=== PATIENT | male | born 1990 ===

== ENCOUNTER 2022-01-30 20:28 | Emergency (ER) | payer SELFPAY ==
[2022-01-30] MEDS ORDERED: SODIUM CHLORIDE 0.9% 1000 ML 1,000 ML IV ONE (23:21)
[2022-01-30] MEDS ORDERED: KETOROLAC 30 MG/1 ML INJ IV ONE (23:21)
[2022-01-30] MEDS ORDERED: ONDANSETRON 4 MG/2 ML INJ IV ONE (23:21)
[2022-01-30 23:23] LABS: Basophils % (Auto) 0.3 % (0.0-1.8); Eosinophils % (Auto) 0.1 % (0.0-4.3); Hematocrit 45.4 % (35.5-45.6); Hemoglobin 15.8 gm/dl (11.8-15.2); Lymphocytes % (Auto) 7.5 % (13.4-35.0); Mean Corpuscular HGB Conc 35 % (32-34); Mean Corpuscular Volume 86 fl (84-94); Monocytes # (Auto) 0.4 K/mm3 (0.0-0.8); Monocytes % (Auto) 3.2 % (0.0-7.3); Platelet Count 160 K/mm3 (140-440); Red Blood Count 5.26 M/mm3 (3.65-5.03); Red Cell Distribution Width 13.7 % (13.2-15.2)
[2022-01-30 23:38] LABS: Alanine Aminotransferase 25 units/L (7-56); Albumin 5.1 g/dL (3.9-5); BUN/Creatinine Ratio 12; Blood Urea Nitrogen 14 mg/dL (9-20); Calcium 9.2 mg/dL (8.4-10.2); Hemolysis Index 9
[2022-01-30 23:47] LABS: Bacteria,Urine 1+ /HPF (Negative); Mucus,Urine FEW /HPF; RBC,Urine > 182.0 /HPF (0.0-6.0)
[2022-01-30 23:48] LABS: Bilirubin,Urine Negative (Negative); Blood,Urine Large (Negative); Color,Urine Yellow (Yellow)
--- NOTE | 2022-01-31 00:38 | Cat Scan Report ---
CT ABDOMEN AND PELVIS WITHOUT CONTRAST INDICATION / CLINICAL INFORMATION: abdominal pain, flank pain. TECHNIQUE: Axial CT images were obtained through the abdomen and pelvis without IV contrast. All CT scans at this location are performed using CT dose reduction for ALARA by means of automated exposure control. COMPARISON: None available. FINDINGS: LOWER CHEST: No significant abnormality of the imaged chest. LIVER: Subcentimeter hypoattenuating lesion right hepatic lobe most likely reflective of cyst or michael ngioma. GALLBLADDER / BILE DUCTS: No significant abnormality. Biliary ducts grossly unremarkable. SPLEEN: No significant abnormality. PANCREAS: No significant abnormality. ADRENALS: No significant abnormality. KIDNEYS/URETERS: 2 small nonobstructing right nephrolith. Additionally, a 3 mm distal left ureteral s tone is present resulting in mild hydroureter and mild hydronephrosis. No additional urolithiasis. Mi nimal perinephric fat stranding around the left kidney is thought to reflect sequelae of obstruction. STOMACH / DUODENUM / SMALL BOWEL: The stomach, duodenum, and small bowel demonstrate no significant a bnormality. No specific abnormality of the mesentery demonstrated. COLON: No significant abnormality. APPENDIX: No significant abnormality. PERITONEUM: No free air or free fluid are present within the abdomen or pelvis. LYMPH NODES: No significant adenopathy. AORTA / ARTERIES: No significant abnormality. IVC / VEINS: No significant abnormality. URINARY BLADDER: No significant abnormality. REPRODUCTIVE ORGANS: No significant abnormality. SKELETAL SYSTEM: No significant abnormality. ADDITIONAL ABDOMINAL/PELVIC FINDINGS: None. IMPRESSION: 1. Distal left ureteral stone resulting in mild hydronephrosis and hydroureter. 2. Additional nonobstructing small right nephrolith. Signer Name: Tate Jauregui II, MD Signed: 01/31/2022 12:33 AM Workstation Name: [id number]
[2022-01-31] MEDS ORDERED: TAMSULOSIN 0.4 MG CAP PO ONE (00:54)
[2022-01-31] MEDS ORDERED: MORPHINE 4 MG/1 ML INJ IV ONE (01:03)
[2022-01-31] MEDS ORDERED: PROCHLORPERAZINE EDISYLATE 10 MG/2 ML VIAL IV ONE (01:03)
--- NOTE | 2022-01-31 01:11 | Emergency Department Report ---
ED Abdominal Pain HPI - General Chief Complaint: Abdominal Pain Stated Complaint: BACK PAIN Source: patient Mode of arrival: Ambulatory Limitations: Language Barrier - History of Present Illness Initial Comments: Patient is a 31-year-old male with no past medical history presents to the ED with complaint of acute onset persistent diffuse abdominal pain that radiates to the bilateral flanks with intractable nausea and vomiting for the last 8 hours. Patient states that the pain has been constant and persistent and that he is unable to keep anything down because of persistent pain. Patient denies dysuria, urinary frequency and urgency, diarrhea, dizziness, syncope, chest pain, shortness of breath, fever, chills, hematuria, testicular pain, traumatic injury, hematemesis, hematochezia or headache. MD Complaint: abdominal pain, flank pain (bilateral), other (Nausea and vomiting) -: Sudden, hour(s) (8) Location: diffuse, L flank, R flank, bilateral flank Radiation: L flank, R flank, bilateral flank, back (lower) Migration to: no migration Severity scale (0 -10): 8 Quality: aching, sharp Consistency: constant Improves With: nothing Worsens With: vomiting Associated Symptoms: denies other symptoms, nausea, vomiting, anorexia. denies: diarrhea, fever, constipation, dysuria, hematemesis, hematochezia, melena, hematuria, syncope - Related Data Previous Rx's Medication Instructions Recorded Last Taken Type Ketorolac [Toradol] 10 mg PO Q8H PRN #20 tab 01/31/22 Unknown Rx Ondansetron [Zofran Odt] 4 mg PO Q8HR PRN #20 tab.rapdis 01/31/22 Unknown Rx Tamsulosin [Flomax] 0.4 mg PO QDAY #15 cap 01/31/22 Unknown Rx oxyCODONE /ACETAMINOPHEN [Percocet 1 tab PO Q6HR PRN #12 tablet 01/31/22 Unknown Rx 5/325] Allergies Allergy/AdvReac Type Severity Reaction Status Date / Time No Known Allergies Allergy Unverified 01/30/22 22:52 ED Review of Systems ROS: Stated complaint: BACK PAIN Other details as noted in HPI Constitutional: denies: chills, fever Eyes: denies: eye pain, eye discharge, vision change ENT: denies: ear pain, throat pain Respiratory: denies: cough, shortness of breath, wheezing Cardiovascular: denies: chest pain, palpitations Endocrine: no symptoms reported Gastrointestinal: abdominal pain (bilateral flank pain), nausea, vomiting. denies: diarrhea Genitourinary: denies: urgency, dysuria Musculoskeletal: denies: back pain, joint swelling, arthralgia Skin: denies: rash, lesions Neurological: denies: headache, weakness, paresthesias Psychiatric: denies: anxiety, depression Hematological/Lymphatic: denies: easy bleeding, easy bruising ED Past Medical Hx - Medications Home Medications: Home Medications Medication Instructions Recorded Confirmed Last Taken Type Ketorolac [Toradol] 10 mg PO Q8H PRN #20 tab 01/31/22 Unknown Rx Ondansetron [Zofran Odt] 4 mg PO Q8HR PRN #20 tab.rapdis 01/31/22 Unknown Rx Tamsulosin [Flomax] 0.4 mg PO QDAY #15 cap 01/31/22 Unknown Rx oxyCODONE /ACETAMINOPHEN [Percocet 1 tab PO Q6HR PRN #12 tablet 01/31/22 Unknown Rx 5/325] ED Physical Exam - General Limitations: Language Barrier General appearance: alert, in no apparent distress - Head Head exam: Present: atraumatic, normocephalic, normal inspection - Eye Eye exam: Present: normal appearance, PERRL, EOMI Pupils: Present: normal accommodation - ENT ENT exam: Present: normal exam, normal orophraynx, mucous membranes moist, TM's normal bilaterally, normal external ear exam - Neck Neck exam: Present: normal inspection, full ROM. Absent: tenderness - Respiratory Respiratory exam: Present: normal lung sounds bilaterally. Absent: respiratory distress, wheezes, rales, rhonchi, chest wall tenderness, accessory muscle use, decreased breath sounds, prolonged expiratory - Cardiovascular Cardiovascular Exam: Present: normal rhythm, bradycardia, normal heart sounds. Absent: systolic murmur, diastolic murmur, rubs, gallop - GI/Abdominal GI/Abdominal exam: Present: soft, tenderness (Palpable bilateral flank and diffuse abdominal tenderness), normal bowel sounds. Absent: guarding, rebound, hyperactive bowel sounds, hypoactive bowel sounds, organomegaly, mass - Extremities Exam Extremities exam: Present: normal inspection, full ROM, normal capillary refill. Absent: tenderness - Back Exam Back exam: Present: normal inspection, full ROM. Absent: tenderness, CVA tenderness (R), CVA tenderness (L), muscle spasm, paraspinal tenderness, ve rtebral tenderness - Neurological Exam Neurological exam: Present: alert, oriented X3, CN II-XII intact, normal gait, reflexes normal - Psychiatric Psychiatric exam: Present: normal affect, normal mood, anxious - Skin Skin exam: Present: warm, dry, intact, normal color. Absent: rash ED Course Vital Signs 01/30/22 22:47 Temperature 98.8 F Pulse Rate 56 L Respiratory 17 Rate Blood Pressure 127/83 [Right] O2 Sat by Pulse 95 Oximetry ED Medical Decision Making - Lab Data Result diagrams: 01/30/22 23:06 01/30/22 23:06 - Radiology Data Radiology results: report reviewed, [place] [address] Cat Scan Report Signed Patient: ROLAN FREITAS MR #: [id number] : 1990 Acct:[id number] Age/Sex: 31 / M ADM Date: 01/30/22 Loc: ED Attending Dr: Ordering Physician: XANDER MAHARAJ Date of Service: 01/30/22 Procedure(s): CT abdomen pelvis wo con Accession Number(s): [id number] cc: XANDER MAHARAJ CT ABDOMEN AND PELVIS WITHOUT CONTRAST INDICATION / CLINICAL INFORMATION: abdominal pain, flank pain. TECHNIQUE: Axial CT images were obtained through the abdomen and pelvis without IV contrast. All CT scans at this location are performed using CT dose reduction for ALARA by means of automated exposure control. COMPARISON: None available. FINDINGS: LOWER CHEST: No significant abnormality of the imaged chest. LIVER: Subcentimeter hypoattenuating lesion right hepatic lobe most likely reflective of cyst or hemangioma. GALLBLADDER / BILE DUCTS: No significant abnormality. Biliary ducts grossly unremarkable. SPLEEN: No significant abnormality. PANCREAS: No significant abnormality. ADRENALS: No significant abnormality. KIDNEYS/URETERS: 2 small nonobstructing right nephrolith. Additionally, a 3 mm distal left ureteral stone is present resulting in mild hydroureter and mild hydronephrosis. No additional urolithiasis. Minimal perinephric fat stranding around the left kidney is thought to reflect sequelae of obstruction. STOMACH / DUODENUM / SMALL BOWEL: The stomach, duodenum, and small bowel demonstrate no significant abnormality. No specific abnormality of the mesentery demonstrated. COLON: No significant abnormality. APPENDIX: No significant abnormality. PERITONEUM: No free air or free fluid are present within the abdomen or pelvis. LYMPH NODES: No significant adenopathy. AORTA / ARTERIES: No significant abnormality. IVC / VEINS: No significant abnormality. URINARY BLADDER: No significant abnormality. REPRODUCTIVE ORGANS: No significant abnormality. SKELETAL SYSTEM: No significant abnormality. ADDITIONAL ABDOMINAL/PELVIC FINDINGS: None. IMPRESSION: 1. Distal left ureteral stone resulting in mild hydronephrosis and hydroureter. 2. Additional nonobstructing small right nephrolith. Signer Name: Reji Galindo II, MD Signed: 01/31/2022 12:33 AM Workstation Name: [id number] Transcribed By: RAGHAVENDRA Dictated By: REJI GALINDO II, MD Electronically Authenticated By: REJI GALINDO II, MD Signed Date/Time: 01/31/2232 DD/ TD/TT: - Medical Decision Making This is a 31-year-old male with no past medical history presents to the ED with complaint of acute onset persistent diffuse abdominal pain that radiates to the bilateral flanks with intractable nausea and vomiting for the last 8 hours. Patient states that the pain has been constant and persistent and that he is unable to keep anything down because of persistent pain. In the ED, patient is alert and oriented x3 and is not in any distress. Patient is hemodynamically stable. Patient was treated for pain in the ED and also received antiemetics and normal saline 1 L IV bolus x1. Lab test results were reviewed and showed acute leukocytosis of 12,800 and urinalysis showed significant hematuria. The rest of the lab test results were nonactionable. Abdomen pelvis CT scan without contrast showed distal left ureteral stone resulting in mild hydronephrosis and hydroureter. Additionally, it also showed nonobstructing small right nephrolith. On reevaluation, patient's pain is well controlled with medication. Patient will discharge home on pain medications and advised to follow-up with urologist Dr. Reich in 3 to 5 days for reevaluation. Patient was also advised to return to the ED immediately if symptoms get worse. - Differential Diagnosis Kidney stone; UTI; pancreatitis; appendicitis; colitis; SBO; gastroenteriti Critical care attestation.: If time is entered above; I have spent that time in minutes in the direct care of this critically ill patient, excluding procedure time. ED Disposition Clinical Impression: Acute flank pain, Abdominal pain in male, Nausea and vomiting in adult patient, Kidney calculi Disposition: 01 HOME / SELF CARE / HOMELESS Is pt being admited?: No Does the pt Need Aspirin: No Condition: Stable Instructions: Kidney Stones, [id number], Renal Colic, [id number], Flank Pain, Adult, [id number], Abdominal Pain, Adult, [id number], Nausea and Vomiting, Adult, [id number] Additional Instructions: Se revisaron todos los resultados de las pruebas de laboratorio y no son procesables, excepto por leucocitosis leve de 12,800 y hematuria macroscpica en el anlisis de orina. La tomografa computarizada de abdomen y pelvis sin contraste mostr un clculo ureteral trevon distal que result en hidronefrosis leve e hidrourter. Adems, tambin mostr nefrolito derecho pequeo no obstructivo. Por lo tanto, es probable que du sntomas se deban a clculos renales bilaterales. Purcell la medicacin recomendada para el dolor, tome tambin la medicacin para las nuseas y los vmitos y aggie un seguimiento con el urlogo Dr. Reich en 3 a 5 love para birgit reevaluacin o regrese al servicio de urgencias inmediatamente si los sntomas empeoran. Prescriptions: Tamsulosin [Flomax] 0.4 mg PO QDAY #15 cap oxyCODONE /ACETAMINOPHEN [Percocet 5/325] 1 tab PO Q6HR PRN #12 tablet PRN Reason: Pain Ketorolac [Toradol] 10 mg PO Q8H PRN #20 tab PRN Reason: Pain , Severe (7-10) Ondansetron [Zofran Odt] 4 mg PO Q8HR PRN #20 tab.rapdis PRN Reason: Nausea Referrals: ZITA REICH MD [Staff Physician] - 3-5 Days KIARA ARIAS MD [Staff Physician] - 3-5 Days Forms: Work/School Release Form(ED) Time of Disposition: 01:16 Print Language: YAKUT
[2022-01-31 02:13] VITALS: BP 124/81
== END 2022-01-31 02:09 | disposition home or self-care (01) ==
LOC: ED 20:28
DX: R10.9 Unspecified abdominal pain (principal); R11.2 Nausea with vomiting, unspecified; N20.0 Calculus of kidney
CPT/HCPCS: 36415; 74176; 80053; 81001; 83690; 85025; 96361; 96374; 96375; 99284; J0780; J1885; J2270; J2405; J7030